=== PATIENT | female | born 1985 | race Caucasian/White ===

== ENCOUNTER 2016-11-22 06:45 | Inpatient (IN) | payer BC ==
[~2016-11-22] VITALS: Ht 175.3 cm; Wt 88.9 kg
[2016-11-22 07:28] VITALS: BP_SYST 152
[2016-11-22] MEDS ORDERED: LR 1,000 ML IV SCH (08:31)
[2016-11-22] MEDS ORDERED: OXYTOCIN/NORMAL SALINE 1,000 ML IV SCH ×3 (08:31→21:33)
[2016-11-22] MEDS ORDERED: LR 1,000 ML IV ONE (08:31)
[2016-11-22] MEDS ORDERED: AMPICILLIN SODIUM 2 GM in NS 100 ML IV ONE (08:45)
[2016-11-22] MEDS ORDERED: NALBUPHINE HCL 10 MG/ML AMP IVP PRN (08:45)
[2016-11-22] MEDS ORDERED: TERBUTALINE SULFATE 1 MG/ML VIAL SUBCUT ONE (08:45)
[2016-11-22 09:21] LABS: BASOPHILS % (AUTO) 0.4 % (0.0-2.0); EOSINOPHILS # (AUTO) 0.1 K/uL (0.0-0.4); EOSINOPHILS % (AUTO) 0.5 % (0.0-4.0); HEMATOCRIT 32.9 % (36-48); HEMOGLOBIN 10.6 g/dL (12.0-16.0); LYMPHOCYTES # (AUTO) 2.5 K/uL (1.0-5.5); LYMPHOCYTES % (AUTO) 19.9 % (20.5-51.5); MEAN CORPUSCULAR HEMOGLOBIN 26 pg (27-31); MEAN CORPUSCULAR HGB CONC 32 % (32-36); MEAN CORPUSCULAR VOLUME 80 fL (79.0-98.0); MONOCYTES # (AUTO) 0.6 K/uL (0.0-1.0); MONOCYTES % (AUTO) 5.1 % (1.7-9.3); NEUTROPHILS # (AUTO) 9.2 K/uL (1.8-7.7); NEUTROPHILS % (AUTO) 74.1 % (40.0-70.0); PLATELET COUNT (AUTO) 299 K/uL (130-430); RED BLOOD CELL COUNT(AUTO) 4.13 MIL/uL (4.2-6.2); RED CELL DISTRIBUTION WIDTH 13.9 % (9.0-15.0); WHITE BLOOD COUNT (AUTO) 12.4 K/uL (4.8-10.8)
[2016-11-22] MEDS: AMPICILLIN SODIUM 1 GM in NS 50 ML IV SCH ×2 (14:16→18:05)
[2016-11-22] MEDS ORDERED: fentaNYL CITRATE/PF 100 MCG/2 ML AMP ONE (17:42)
[2016-11-22] MEDS ORDERED: FENT2mCg/mL-ROPIVA0.2%/NS EPID 150 ML EP ONE (17:43)
[2016-11-22] MEDS ORDERED: LR 500 ML IV ONE (18:13)
[2016-11-22] MEDS ORDERED: ePHEDrine sulfate 50 MG/ML VIAL IVP PRN (18:15)
[2016-11-22] MEDS ORDERED: fentaNYL CITRATE/PF 100 MCG/2 ML AMP EP ONE (18:15)
[2016-11-22] MEDS ORDERED: FENT2mCg/mL-ROPIVA0.2%/NS EPID 150 ML EP SCH (18:15)
[2016-11-22] MEDS ORDERED: ROPIVACAINE 40 MG/20 ML AMP EP ONE ×2 (19:00)
[2016-11-22] MEDS ORDERED: TEMAZEPAM 15 MG CAPSULE PO PRN (21:00)
[2016-11-22] MEDS ORDERED: OXYTOCIN/NORMAL SALINE 1,000 ML IV ONE (21:33)
[2016-11-22] MEDS ORDERED: METHYLERGONOVINE MALEATE 0.2 MG/ML AMP ONE (21:38)
[2016-11-22] MEDS ORDERED: METHYLERGONOVINE MALEATE 0.2 MG TABLET PO PRN (21:45)
[2016-11-22] MEDS ORDERED: HYDROcodone/ACETAMIN 5-325 MG TAB (NORCO/ VICODIN) PO PRN (21:45)
[2016-11-22] MEDS ORDERED: ANUSOL 1 EA SUPP.RECT (PREPARATION H) RC PRN (21:45)
[2016-11-22] MEDS ORDERED: RHO(D) IMMUNE GLOBULIN/MALTOSE 1500 UNITS/1.3 ML (WINHRO) IM PRN (21:45)
[2016-11-22] MEDS ORDERED: MEASLES,MUMPS&RUBELLA VACC/PF 12500 UNIT/0.5 ML VIAL SUBQ PRN (21:45)
[2016-11-22] MEDS ORDERED: SENNOSIDES/DOCUSATE SODIUM 1 TAB TABLET(SENOKOT-S) PO PRN (21:45)
[2016-11-22] MEDS ORDERED: GLYCERIN/WITCH HAZEL (TUCKS PADS) TP PRN (21:45)
[2016-11-22] MEDS ORDERED: DOCUSATE SODIUM 100 MG CAPSULE PO PRN (21:45)
[2016-11-22] MEDS ORDERED: DERMOPLAST SPRAY TP PRN (21:45)
[2016-11-22] MEDS ORDERED: OXYCODONE/ACETAMINOPHEN 5-325 TABLET PO PRN ×2 (21:45)
[2016-11-22] MEDS ORDERED: HYDROCORTISONE 0.5%, 28.35 GM TOPICAL CREAM TP PRN (21:45)
[2016-11-22] MEDS ORDERED: LANOLIN 7 GM OINT. TP PRN (21:45)
[2016-11-23] MEDS: IBUPROFEN 600 MG TABLET PO SCH ×5 (00:01→23:50)
[2016-11-23 06:25] LABS: BASOPHILS # (AUTO) 0.1 K/uL (0.0-0.2); BASOPHILS % (AUTO) 0.5 % (0.0-2.0); EOSINOPHILS # (AUTO) 0.1 K/uL (0.0-0.4); EOSINOPHILS % (AUTO) 0.9 % (0.0-4.0); HEMATOCRIT 29.5 % (36-48); HEMOGLOBIN 9.5 g/dL (12.0-16.0); LYMPHOCYTES # (AUTO) 2.6 K/uL (1.0-5.5); LYMPHOCYTES % (AUTO) 23.4 % (20.5-51.5); MEAN CORPUSCULAR HEMOGLOBIN 26 pg (27-31); MEAN CORPUSCULAR HGB CONC 32 % (32-36); MEAN CORPUSCULAR VOLUME 79 fL (79.0-98.0); MONOCYTES # (AUTO) 0.5 K/uL (0.0-1.0); MONOCYTES % (AUTO) 4.4 % (1.7-9.3); NEUTROPHILS % (AUTO) 70.8 % (40.0-70.0); PLATELET COUNT (AUTO) 272 K/uL (130-430); RED BLOOD CELL COUNT(AUTO) 3.73 MIL/uL (4.2-6.2); RED CELL DISTRIBUTION WIDTH 14.4 % (9.0-15.0); WHITE BLOOD COUNT (AUTO) 11.3 K/uL (4.8-10.8)
[2016-11-24] MEDS: IBUPROFEN 600 MG TABLET PO SCH (06:17)
[2016-11-24] MEDS ORDERED: DIPH-TET-PERTUS Vaccine 0.5 ML VIAL/Tdap (ADACEL) I.M. PRN (08:00)
== END 2016-11-24 10:20 | disposition home or self-care (01) | DRG 775 ==
LOC: SPU 06:45 → OBSVTOIN 08:21
PROVIDERS: ADMIT Specialist; ATTEND Specialist
PROC: 10E0XZZ Delivery of Products of Conception, External Approach (ICD-10-PCS; principal; 2016-11-22)
PROC: 3E0R3CZ (ICD-10-PCS; 2016-11-22)
PROC: 00HU33Z Insertion of Infusion Device into Spinal Canal, Percutaneous Approach (ICD-10-PCS; 2016-11-22)
PROC: 3E0134Z Introduction of Serum, Toxoid and Vaccine into Subcutaneous Tissue, Percutaneous Approach (ICD-10-PCS; 2016-11-22)
DX: O42.913 Preterm premature rupture of membranes, unspecified as to length of time between rupture and onset of labor, third trimester (principal); Z37.0 Single live birth; Z3A.36 36 weeks gestation of pregnancy; Z23 Encounter for immunization
CPT/HCPCS: 36415; 81002-TC; 85025; 86592; 86886; 86900; 86901; 90715; G0378; J0290; J2210; J2795; J3010; J7120

== ENCOUNTER 2019-04-17 15:27 | Emergency (ER) | payer BC, OTHER ==
[~2019-04-17] VITALS: Ht 175.3 cm; Wt 84.4 kg
[2019-04-17 15:27] VITALS: BP_SYST 147
--- NOTE | 2019-04-17 15:27 | NUR ---
BROUGHT BACK TO BED #5 AND TRIAGED, REPORT GIVEN TO MARISOL
--- NOTE | 2019-04-17 15:48 | NUR ---
ER Dr. Patel at bedside examining patient.
--- NOTE | 2019-04-17 16:00 | NUR ---
Patient AAO x 4 ambulates to ER bed 05 with c/o palpitations, nausea, lightheadedness, and RLQ abd pain since this AM. Reports feeling anxious. Took Joaquim last night for headache. Even chest rise and fall with respirations. No acute distress noted at this time. Will continue to monitor.
[2019-04-17 16:46] LABS: BASOPHILS # (AUTO) 0.1 K/uL (0.0-0.2); BASOPHILS % (AUTO) 0.8 % (0.0-2.0); EOSINOPHILS # (AUTO) 0.1 K/uL (0.0-0.4); EOSINOPHILS % (AUTO) 0.8 % (0.0-4.0); HEMATOCRIT 36.1 % (36-48); HEMOGLOBIN 11.5 g/dL (12.0-16.0); LYMPHOCYTES # (AUTO) 2.7 K/uL (1.0-5.5); LYMPHOCYTES % (AUTO) 24.1 % (20.5-51.5); MEAN CORPUSCULAR HEMOGLOBIN 26 pg (27-31); MEAN CORPUSCULAR HGB CONC 32 % (32-36); MEAN CORPUSCULAR VOLUME 81 fL (79.0-98.0); MONOCYTES # (AUTO) 0.8 K/uL (0.0-1.0); MONOCYTES % (AUTO) 6.7 % (1.7-9.3); NEUTROPHILS # (AUTO) 7.6 K/uL (1.8-7.7); NEUTROPHILS % (AUTO) 67.6 % (40.0-70.0); PLATELET COUNT (AUTO) 423 K/uL (130-430); RED BLOOD CELL COUNT(AUTO) 4.45 MIL/uL (4.2-6.2); RED CELL DISTRIBUTION WIDTH 16.8 % (9.0-15.0); WHITE BLOOD COUNT (AUTO) 11.2 K/uL (4.8-10.8)
[2019-04-17] MEDS: KETOROLAC TROMETHAMINE 15 MG VIAL IVP ONE (16:53)
[2019-04-17] MEDS: MAG HYDROX/AL HYDROX/SIMETH 30 ML, DICYCLOMINE HCL 20 MG, LIDOCAINE VISCOUS 2% 15ML (PO... PO ONE ×3 (16:57)
[2019-04-17 17:02] LABS: ANION GAP 7 (5-15); CALCIUM 8.7 mg/dL (8.4-11.0); CHLORIDE 106 mmol/L (98-107); CREATININE 0.74 mg/dL (0.55-1.30); GFR AFRICAN AMERICAN 118 mL/min (>90); GLUCOSE 100 mg/dL (70-99); POTASSIUM 4.3 mmol/L (3.5-5.1); SODIUM SERUM 140 mmol/L (136-145); UREA NITROGEN, BLOOD 13 mg/dL (8-21)
[2019-04-17 17:07] LABS: ALANINE AMINOTRANSFERASE 26 U/L (12-78); ALBUMIN 3.5 g/dL (3.4-4.8); ASPARTATE AMINOTRANSFERASE 16 U/L (10-37); LIPASE 230 U/L (73-393); TOTAL BILIRUBIN 0.2 mg/dL (0.0-1.0)
[2019-04-17 20:25] VITALS: BP_SYST 134
--- NOTE | 2019-04-17 20:25 | NUR ---
Patient given written and verbal discharge instructions and verbalizes understanding. ER MD Dr. Patel discussed with patient the results and treatment provided. Patient in stable condition. ID arm band removed. Rx of Flomax, [place], and Ibuprofen given. Patient educated on pain management and to follow up with PMD. Pain Scale 0/10. Opportunity for questions provided and answered. Medication side effect fact sheet provided.
== END 2019-04-17 20:25 | disposition home or self-care (01) ==
LOC: SED 15:27
DX: R00.2 Palpitations (principal); R10.30 Lower abdominal pain, unspecified
CPT/HCPCS: 36415; 74176; 80053; 81002; 81025; 83690; 84484; 85025; 85379; 93005; 96372; 99284; J1885; J2001

== ENCOUNTER 2019-05-16 13:09 | Emergency (ER) | payer OTHER ==
[~2019-05-16] VITALS: Ht 175.3 cm; Wt 71.7 kg
[2019-05-16 13:10] VITALS: BP_SYST 140
[2019-05-16] MEDS ORDERED: ASPIRIN 81 MG TAB.CHEW PO ONE (15:45)
[2019-05-16 15:59] LABS: BASOPHILS # (AUTO) 0.1 K/uL (0.0-0.2); BASOPHILS % (AUTO) 1.1 % (0.0-2.0); EOSINOPHILS # (AUTO) 0.1 K/uL (0.0-0.4); EOSINOPHILS % (AUTO) 0.9 % (0.0-4.0); HEMATOCRIT 35.9 % (36-48); HEMOGLOBIN 11.3 g/dL (12.0-16.0); LYMPHOCYTES # (AUTO) 3.6 K/uL (1.0-5.5); LYMPHOCYTES % (AUTO) 30.5 % (20.5-51.5); MEAN CORPUSCULAR HEMOGLOBIN 26 pg (27-31); MEAN CORPUSCULAR HGB CONC 32 % (32-36); MEAN CORPUSCULAR VOLUME 81 fL (79.0-98.0); MONOCYTES # (AUTO) 0.7 K/uL (0.0-1.0); MONOCYTES % (AUTO) 6.2 % (1.7-9.3); NEUTROPHILS # (AUTO) 7.2 K/uL (1.8-7.7); NEUTROPHILS % (AUTO) 61.3 % (40.0-70.0); PLATELET COUNT (AUTO) 398 K/uL (130-430); RED BLOOD CELL COUNT(AUTO) 4.43 MIL/uL (4.2-6.2); RED CELL DISTRIBUTION WIDTH 15.9 % (9.0-15.0); WHITE BLOOD COUNT (AUTO) 11.7 K/uL (4.8-10.8)
[2019-05-16 16:17] LABS: PROTHROMBIN TIME 9.9 SECS (9.5-12.5)
[2019-05-16 16:23] LABS: CALCIUM 7.8 mg/dL (8.4-11.0); CREATININE 0.63 mg/dL (0.55-1.30)
[2019-05-16 16:27] LABS: ALBUMIN 3.2 g/dL (3.4-4.8); TOTAL BILIRUBIN 0.1 mg/dL (0.0-1.0)
[2019-05-16] MEDS ORDERED: MORPHINE 4 MG/ML INJ. SYRINGE IVP ONE (17:45)
[2019-05-16] MEDS ORDERED: ONDANSETRON HCL 4 MG/2 ML VIAL IVP ONE (17:45)
[2019-05-16 19:15] VITALS: BP_SYST 132
== END 2019-05-16 19:16 | disposition short-term general hospital (02) ==
LOC: SED 13:09
DX: R07.89 Other chest pain (principal); I10 Essential (primary) hypertension; E78.00 Pure hypercholesterolemia, unspecified
CPT/HCPCS: 36415; 71045; 80053; 82550; 83690; 84484; 85025; 85610; 85730; 96374; 96375; 99285; J2270; J2405